=== PATIENT | male | born 1940 | race Caucasian/White ===

== ENCOUNTER → 2018-02-24 13:58 | Outpatient (CLI) | payer MEDICARE, BC ==
[2018-02-24 15:37] LABS: ANION GAP 12.9 mmol/L (8-16); CARBON DIOXIDE 25.6 mmol/L (21.0-32.0); CREATININE - SERUM 1.7 mg/dL (0.6-1.3); POTASSIUM - SERUM 4.5 mmol/L (3.5-5.1)
== END | disposition home or self-care (01) ==
LOC: D.LABREF 13:58
DX: R53.1 Weakness (principal); R79.89 Other specified abnormal findings of blood chemistry

== ENCOUNTER 2019-12-21 17:22 | Emergency (ER) | payer MEDICARE, BC ==
[~2019-12-21] VITALS: Ht 175.3 cm; Wt 113.6 kg
[2019-12-21 17:32] VITALS: BP 197/75; Ht 175.3 cm; Wt 113.6 kg
[2019-12-21] MEDS ORDERED: ZOVIRAX200 MG PO (17:34)
[2019-12-21] MEDS ORDERED: BAYER CHEWABLE81 MG PO (17:34)
[2019-12-21] MEDS ORDERED: LEXAPRO5 MG PO (17:34)
[2019-12-21] MEDS ORDERED: PACERONE200 MG PO (17:34)
[2019-12-21] MEDS ORDERED: LASIX40 MG PO (17:35)
[2019-12-21] MEDS ORDERED: PRAVACHOL20 MG PO (17:35)
[2019-12-21] MEDS ORDERED: PLAVIX75 MG PO (17:35)
[2019-12-21] MEDS ORDERED: K-DUR20 MEQ PO (17:35)
[2019-12-21] MEDS ORDERED: MONODOX100 MG PO (17:36)
[2019-12-21] MEDS ORDERED: CALCIUM 600 +1 EAC3 PO (17:36)
[2019-12-21] MEDS ORDERED: THALOMID50 MG PO (17:37)
[2019-12-21] MEDS ORDERED: DECADRON4 MG PO (17:37)
[2019-12-21] MEDS ORDERED: MYCELEX TROCHE10 MG PO (17:38)
[2019-12-21] MEDS ORDERED: SYMBICORT 16010.2 GM INH (17:38)
[2019-12-21] MEDS ORDERED: COMBIVENT RESPIM4 GM INH (17:38)
[2019-12-21] MEDS ORDERED: NOVOLIN 70/30 110 ML SC (17:39)
[2019-12-21] MEDS ORDERED: NOVOLOG100 UNIT/1 SC (17:40)
== END 2019-12-21 17:58 | disposition home or self-care (01) ==
LOC: D.ER 17:22
DX: S41.111A Laceration without foreign body of right upper arm, initial encounter (principal); E11.9 Type 2 diabetes mellitus without complications; I10 Essential (primary) hypertension; Z79.4 Long term (current) use of insulin; X58.XXXA Exposure to other specified factors, initial encounter